=== PATIENT | male | born 1980 | race African-American/Black ===

== ENCOUNTER 2016-10-14 17:32 | Emergency (ER) | payer MEDICAID ==
[~2016-10-14] VITALS: Ht 182.9 cm; Wt 80.0 kg
[2016-10-14] MEDS ORDERED: SODIUM CHLORIDE 0.9% 1,000 ML IV ONE (17:47)
[2016-10-14] MEDS ORDERED: LORAZEPAM 2MG/ML CPJ IV STA (17:47)
[2016-10-14] MEDS ORDERED: ZIPRASIDONE MESYLATE 20MG/VIAL IM STA (17:47)
[2016-10-14 18:31] LABS: BASOPHILS % 1.3 % (0.0-2.0); EOSINOPHILS % 0.7 % (0.0-5.0); HEMATOCRIT. 36.2 % (42.0-52.0); HEMOGLOBIN. 12.8 g/dL (14.0-18.0); LYMPHOCYTES % 41.2 % (20.0-50.0); MEAN CORPUSCULAR HEMOGLOBIN 31.7 pg (28.0-32.0); MEAN CORPUSCULAR HGB CONC 35.3 g/dL (31.0-37.0); MEAN CORPUSCULAR VOLUME 89.6 fL (80.0-94.0); MEAN PLATELET VOLUME 7.7 fl (7.4-10.4); MONOCYTES % 6.5 % (2.0-8.0); NEUTROPHILS % 50.3 % (40.0-76.0); PLATELET 305 x1000/uL (130-400); RED BLOOD CELL COUNT 4.04 mill/uL (4.7-6.1); RED CELL DISTRIBUTION WIDTH 13.7 % (11.6-14.6); WHITE BLOOD COUNT 7.2 x1000/uL (4.5-11.0)
[2016-10-14 18:40] LABS: AMMONIA 22 uMol/L (<32); INDEX HEMOLYSI 1 (1-3)
[2016-10-14 18:46] LABS: ACETAMINOPHEN < 2 ug/mL (10-30); ALANINE AMINOTRANSFERASE 34 IU/L (13-61); ALBUMIN 4.1 g/dL (3.4-5.0); ANION GAP 16; CALCIUM 8.1 mg/dL (8.5-10.1); CARBON DIOXIDE 22 mEq/L (21-32); CHLORIDE 110 mEq/L (98-107); CREATINE KINASE 439 IU/L (39-308); INDEX HEMOLYSI 1 (1-3); INDEX ICTERIC 1 (1-4); INDEX LIPEMIC 1 (1-3); UREA NITROGEN BLOOD 6 mg/dL (7-21); eGFR > 60 mL/min (>60)
[2016-10-14 18:48] LABS: ETHANOL BLOOD 346 mg/dL
[2016-10-14 18:50] LABS: THYROID STIMULATING HORMONE 0.34 uIU/mL (0.36-3.74)
[2016-10-14 19:21] LABS: CLARITY URINE CLEAR (CLEAR); COLOR URINE YELLOW (YELLOW); GLUCOSE URINE NEGATIVE (NEGATIVE); KETONES URINE NEGATIVE (NEGATIVE); LEUKOCYTE ESTERASE URINE NEGATIVE (NEGATIVE); NITRITE URINE NEGATIVE (NEGATIVE); OCCULT BLOOD URINE NEGATIVE (NEGATIVE); PROTEIN URINE NEGATIVE (NEGATIVE); SPECIFIC GRAVITY URINE 1.006 (1.005-1.030); UROBILINOGEN URINE 0.2 E.U./dL (0.2-1.0)
[2016-10-14 19:49] LABS: *AMPHETAMINES SCREEN URINE NEGATIVE (NEGATIVE); *BARBITURATES SCREEN URINE NEGATIVE (NEGATIVE); *BENZODIAZEPINES SCREEN URINE NEGATIVE (NEGATIVE); *COCAINE SCREEN URINE NEGATIVE (NEGATIVE); CANNABINOID URINE SCREEN NEGATIVE (NEGATIVE); ECSTASY MDMA SCREEN URINE NEGATIVE (NEGATIVE); METHADONE URINE SCREEN NEGATIVE (NEGATIVE); OPIATES URINE SCREEN NEGATIVE (NEGATIVE); PHENCYCLIDINE URINE SCREEN NEGATIVE (NEGATIVE)
[2016-10-14 22:45] VITALS: BP 153/71
[2016-10-14] MEDS ORDERED: LEVETIRACETAM 500MG/5ML CUP PO ONE (23:45)
== END 2016-10-15 00:15 | disposition home or self-care (01) ==
LOC: ER 17:33
DX: F10.229 Alcohol dependence with intoxication, unspecified (principal); Y90.8 Blood alcohol level of 240 mg/100 ml or more; F91.8 Other conduct disorders; E86.0 Dehydration; E83.51 Hypocalcemia; E03.9 Hypothyroidism, unspecified; G40.909 Epilepsy, unspecified, not intractable, without status epilepticus; E87.8 Other disorders of electrolyte and fluid balance, not elsewhere classified; D63.8 Anemia in other chronic diseases classified elsewhere; R03.0 Elevated blood-pressure reading, without diagnosis of hypertension; Z78.1 Physical restraint status; Z91.19 Patient's noncompliance with other medical treatment and regimen
CPT/HCPCS: 36415; 80053; 80305; 80329; 81003; 82140; 82550; 84443; 85025; 93005; 96361; 96372; 96374; 99285; G0482; J2060; J3486; J7030; Z7610; 80307

== ENCOUNTER 2016-10-28 20:12 | Emergency (ER) | payer MEDICAID ==
[~2016-10-28] VITALS: Ht 172.7 cm; Wt 100.0 kg
[2016-10-28] MEDS ORDERED: LEVETIRACETAM 500MG/5ML CUP PO ONE (23:15)
[2016-10-29 00:48] VITALS: BP 151/93
== END 2016-10-29 00:49 | disposition home or self-care (01) ==
LOC: ER 10-29
DX: Z76.0 Encounter for issue of repeat prescription (principal); G40.909 Epilepsy, unspecified, not intractable, without status epilepticus; R47.81 Slurred speech; R03.0 Elevated blood-pressure reading, without diagnosis of hypertension; Z98.890 Other specified postprocedural states; Z87.820 Personal history of traumatic brain injury; Z88.8 Allergy status to other drugs, medicaments and biological substances; F10.10 Alcohol abuse, uncomplicated
CPT/HCPCS: 99283

== ENCOUNTER 2016-11-04 14:07 | Emergency (ER) | payer MEDICAID ==
[~2016-11-04] VITALS: Ht 182.9 cm; Wt 90.0 kg
[2016-11-04] MEDS ORDERED: SODIUM CHLORIDE 0.9% 1,000 ML IV ONE (14:25)
[2016-11-04] MEDS ORDERED: OLANZAPINE 10 MG/VIAL IM ONE ×2 (14:30→19:45)
[2016-11-04 15:47] LABS: BASOPHILS % 0.2 % (0.0-2.0); EOSINOPHILS % 2.3 % (0.0-5.0); HEMATOCRIT. 36.8 % (42.0-52.0); HEMOGLOBIN. 12.7 g/dL (14.0-18.0); LYMPHOCYTES % 44.3 % (20.0-50.0); MEAN CORPUSCULAR HEMOGLOBIN 30.4 pg (28.0-32.0); MEAN CORPUSCULAR HGB CONC 34.5 g/dL (31.0-37.0); MEAN PLATELET VOLUME 7.6 fl (7.4-10.4); MONOCYTES % 4.2 % (2.0-8.0); PLATELET 228 x1000/uL (130-400); RED BLOOD CELL COUNT 4.17 mill/uL (4.7-6.1); RED CELL DISTRIBUTION WIDTH 13.3 % (11.6-14.6)
[2016-11-04 15:51] LABS: CHLORIDE 111 mEq/L (98-107); INDEX HEMOLYSI 1 (1-3); INDEX ICTERIC 1 (1-4); INDEX LIPEMIC 1 (1-3)
[2016-11-04 15:58] LABS: ALANINE AMINOTRANSFERASE 30 IU/L (13-61); ALBUMIN 3.7 g/dL (3.4-5.0); AMMONIA 36 uMol/L (<32); ANION GAP 12; CALCIUM 8.3 mg/dL (8.5-10.1); CARBON DIOXIDE 26 mEq/L (21-32); UREA NITROGEN BLOOD 6 mg/dL (7-21)
[2016-11-04 16:01] LABS: eGFR > 60 mL/min (>60)
[2016-11-04 16:04] LABS: ACETAMINOPHEN < 2 ug/mL (10-30)
[2016-11-04 16:06] LABS: CARBAMAZEPINE < 0.5 ug/mL (4-12); ETHANOL BLOOD 358 mg/dL; PHENYTOIN 0.8 ug/mL (10-20); THYROID STIMULATING HORMONE 0.08 uIU/mL (0.36-3.74)
[2016-11-04 16:11] LABS: PHENOBARBITAL < 2.1 ug/mL (15.0-40.0); VALPROIC ACID 3.4 ug/mL (50-100)
[2016-11-04] MEDS ORDERED: PHENYTOIN SODIUM 1,000 MG in SODIUM CHLORIDE 0.9% 100 ML IV ONE (16:45)
[2016-11-04] MEDS ORDERED: PHENYTOIN SODIUM 1,000 MG in SODIUM CHLORIDE 0.9% 100 ML IV SCH (17:01)
[2016-11-04 17:20] LABS: *AMPHETAMINES SCREEN URINE NEGATIVE (NEGATIVE); *BARBITURATES SCREEN URINE NEGATIVE (NEGATIVE); *BENZODIAZEPINES SCREEN URINE NEGATIVE (NEGATIVE); *COCAINE SCREEN URINE NEGATIVE (NEGATIVE); CANNABINOID URINE SCREEN NEGATIVE (NEGATIVE); ECSTASY MDMA SCREEN URINE NEGATIVE (NEGATIVE); METHADONE URINE SCREEN NEGATIVE (NEGATIVE); OPIATES URINE SCREEN NEGATIVE (NEGATIVE); PHENCYCLIDINE URINE SCREEN NEGATIVE (NEGATIVE)
[2016-11-04] MEDS ORDERED: LORAZEPAM 2MG/ML CPJ IM ONE (20:45)
[2016-11-05 06:39] VITALS: BP 108/72
== END 2016-11-05 06:42 | disposition home or self-care (01) ==
LOC: ER 14:09
DX: F10.120 Alcohol abuse with intoxication, uncomplicated (principal); Z88.6 Allergy status to analgesic agent
CPT/HCPCS: 36415; 71010; 73130; 80053; 80156; 80165; 80184; 80185; 80305; 80307; 80329; 82140; 84443; 85025; 93005; 96361; 96365; 96372; 99285; G0482; J1165; J2060; J3490; J7030; J7050

== ENCOUNTER 2018-01-02 01:28 | Emergency (ER) | payer SELFPAY ==
[~2018-01-02 01:28] MED LIST: CEPH-569 PO; KEPP500 PO
== END 2018-01-02 01:34 | disposition left against medical advice (07) ==
LOC: ER 01:32
DX: R56.9 Unspecified convulsions (principal); Z53.21 Procedure and treatment not carried out due to patient leaving prior to being seen by health care provider

== ENCOUNTER 2018-01-03 17:09 | Emergency (ER) | payer SELFPAY | END 2018-01-03 18:33 | disposition left against medical advice (07) | LOC: ER 18:28 | DX: Z53.21 Procedure and treatment not carried out due to patient leaving prior to being seen by health care provider (principal) ==

== ENCOUNTER 2018-01-06 16:02 | Emergency (ER) | payer MEDICAID ==
[~2018-01-06] VITALS: Ht 162.6 cm; Wt 74.0 kg
[2018-01-06 16:07] VITALS: BP 114/73
== END 2018-01-06 16:48 | disposition home or self-care (01) ==
LOC: ER 16:14
DX: Z76.0 Encounter for issue of repeat prescription (principal); R56.9 Unspecified convulsions; F17.200 Nicotine dependence, unspecified, uncomplicated
CPT/HCPCS: 99283

== ENCOUNTER 2018-02-16 14:47 | Emergency (ER) | payer MEDICAID | END 2018-02-16 16:21 | disposition left against medical advice (07) | LOC: ER 16:17 | DX: Z53.21 Procedure and treatment not carried out due to patient leaving prior to being seen by health care provider (principal) ==

== ENCOUNTER 2018-02-19 14:43 | Emergency (ER) | payer MEDICAID ==
[~2018-02-19] VITALS: Ht 180.3 cm; Wt 73.0 kg
[2018-02-19 15:54] VITALS: BP 141/80
== END 2018-02-19 17:47 | disposition left against medical advice (07) ==
LOC: ER 15:49
DX: G40.802 Other epilepsy, not intractable, without status epilepticus (principal)
CPT/HCPCS: 99281

== ENCOUNTER 2018-02-20 09:46 | Emergency (ER) | payer MEDICAID ==
[~2018-02-20] VITALS: Ht 175.3 cm; Wt 75.0 kg
[2018-02-20] MEDS ORDERED: LEVETIRACETAM 500MG PREMIX 100 ML IV ONE (10:30)
[2018-02-20 11:03] LABS: EOSINOPHILS % 1.4 % (0.0-5.0); HEMATOCRIT. 37.2 % (42.0-52.0); HEMOGLOBIN. 13.1 g/dL (14.0-18.0); LYMPHOCYTES % 45.5 % (20.0-50.0); MEAN CORPUSCULAR HEMOGLOBIN 29.5 pg (28.0-32.0); MEAN CORPUSCULAR VOLUME 84.3 fL (80.0-94.0); MONOCYTES % 6.9 % (2.0-8.0); NEUTROPHILS % 45.2 % (40.0-76.0); PLATELET 256 x1000/uL (130-400); RED BLOOD CELL COUNT 4.42 mill/uL (4.7-6.1); RED CELL DISTRIBUTION WIDTH 14.8 % (11.6-14.6)
[2018-02-20 11:09] LABS: CHLORIDE 111 mEq/L (98-107)
[2018-02-20 11:12] LABS: INR 0.9; PARTIAL THROMBOPLASTIN TIME 24.6 sec (23.4-31.0); PROTHROMBIN TIME 9.9 sec (9.4-11.6)
[2018-02-20 11:24] LABS: ETHANOL BLOOD 407 mg/dL
[2018-02-20 11:51] LABS: *COCAINE SCREEN URINE NEGATIVE (NEGATIVE)
[2018-02-20 11:52] LABS: *AMPHETAMINES SCREEN URINE NEGATIVE (NEGATIVE); *BARBITURATES SCREEN URINE NEGATIVE (NEGATIVE); *BENZODIAZEPINES SCREEN URINE NEGATIVE (NEGATIVE); CANNABINOID URINE SCREEN NEGATIVE (NEGATIVE); METHADONE URINE SCREEN NEGATIVE (NEGATIVE); OPIATES URINE SCREEN NEGATIVE (NEGATIVE); PHENCYCLIDINE URINE SCREEN NEGATIVE (NEGATIVE)
[2018-02-20 14:58] VITALS: BP 124/77
== END 2018-02-20 14:59 | disposition home or self-care (01) ==
LOC: ER 09:46
DX: F10.129 Alcohol abuse with intoxication, unspecified (principal); Y90.8 Blood alcohol level of 240 mg/100 ml or more; R45.1 Restlessness and agitation; F91.8 Other conduct disorders; R41.0 Disorientation, unspecified; R03.0 Elevated blood-pressure reading, without diagnosis of hypertension; G40.909 Epilepsy, unspecified, not intractable, without status epilepticus; Z88.8 Allergy status to other drugs, medicaments and biological substances; Z79.899 Other long term (current) drug therapy
CPT/HCPCS: 36415; 80053; 80305; 85025; 85610; 85730; 96365; 99284; G0482; J1953; Z7610

== ENCOUNTER 2018-02-27 14:46 | Emergency (ER) | payer MEDICAID ==
[~2018-02-27] VITALS: Ht 170.2 cm; Wt 70.0 kg
[2018-02-27 14:47] VITALS: BP 104/71
== END 2018-02-27 15:19 | disposition left against medical advice (07) ==
LOC: ER 15:13
DX: Z04.8 Encounter for examination and observation for other specified reasons (principal); Z53.21 Procedure and treatment not carried out due to patient leaving prior to being seen by health care provider

== ENCOUNTER 2018-03-19 14:02 | Emergency (ER) | payer MEDICAID ==
[~2018-03-19] VITALS: Ht 180.3 cm; Wt 74.0 kg
[2018-03-19 14:27] VITALS: BP 132/88
== END 2018-03-19 18:41 | disposition left against medical advice (07) ==
LOC: ER 14:48
DX: R56.9 Unspecified convulsions (principal); F17.200 Nicotine dependence, unspecified, uncomplicated; Z76.0 Encounter for issue of repeat prescription
CPT/HCPCS: 99281

== ENCOUNTER 2018-04-16 14:49 | Emergency (ER) | payer MEDICAID ==
[~2018-04-16] VITALS: Ht 175.3 cm; Wt 69.0 kg
[2018-04-16 15:00] VITALS: BP 152/94
== END 2018-04-16 18:14 | disposition home or self-care (01) ==
LOC: ER 14:49
DX: R56.9 Unspecified convulsions (principal); F17.200 Nicotine dependence, unspecified, uncomplicated; Z76.0 Encounter for issue of repeat prescription; Z88.6 Allergy status to analgesic agent; Z98.890 Other specified postprocedural states
CPT/HCPCS: 99283

== ENCOUNTER 2018-04-27 16:51 | Emergency (ER) | payer MEDICAID ==
[~2018-04-27] VITALS: Ht 175.3 cm; Wt 80.0 kg
[2018-04-27 16:58] VITALS: BP 118/78
== END 2018-04-27 18:16 | disposition left against medical advice (07) ==
LOC: ER 17:35
DX: Z53.21 Procedure and treatment not carried out due to patient leaving prior to being seen by health care provider (principal)

== ENCOUNTER 2018-05-03 08:35 | Emergency (ER) | payer MEDICAID ==
[~2018-05-03] VITALS: Ht 170.2 cm; Wt 74.0 kg
[2018-05-03] MEDS ORDERED: LEVETIRACETAM 500MG/5ML CUP PO ONE (10:00)
[2018-05-03 10:29] VITALS: BP 114/76
== END 2018-05-03 10:31 | disposition home or self-care (01) ==
LOC: ER 08:35
DX: G40.909 Epilepsy, unspecified, not intractable, without status epilepticus (principal); F17.200 Nicotine dependence, unspecified, uncomplicated; Z88.6 Allergy status to analgesic agent; Z98.890 Other specified postprocedural states
CPT/HCPCS: 99283

== ENCOUNTER 2018-05-09 08:42 | Emergency (ER) | payer MEDICAID ==
[~2018-05-09] VITALS: Ht 177.8 cm; Wt 80.0 kg
[2018-05-09] MEDS ORDERED: LEVETIRACETAM 1000MG/100ML 100 ML IV ONE (09:15)
[2018-05-09 09:50] LABS: BASOPHILS % 1.4 % (0.0-2.0); EOSINOPHILS % 3.4 % (0.0-5.0); HEMATOCRIT. 39.3 % (42.0-52.0); HEMOGLOBIN. 13.5 g/dL (14.0-18.0); LYMPHOCYTES % 26.6 % (20.0-50.0); MEAN CORPUSCULAR HEMOGLOBIN 29.5 pg (28.0-32.0); MEAN CORPUSCULAR VOLUME 85.6 fL (80.0-94.0); MEAN PLATELET VOLUME 8.5 fl (7.4-10.4); MONOCYTES % 9.4 % (2.0-8.0); NEUTROPHILS % 59.2 % (40.0-76.0); PLATELET 250 x1000/uL (130-400); RED BLOOD CELL COUNT 4.59 mill/uL (4.7-6.1); RED CELL DISTRIBUTION WIDTH 13.6 % (11.6-14.6)
[2018-05-09 09:57] LABS: CHLORIDE 99 mEq/L (98-107)
[2018-05-09 10:05] LABS: ETHANOL BLOOD < 10 mg/dL
[2018-05-09 10:23] VITALS: BP 121/82
== END 2018-05-09 10:25 | disposition home or self-care (01) ==
LOC: ER 08:52
DX: G40.909 Epilepsy, unspecified, not intractable, without status epilepticus (principal); F17.200 Nicotine dependence, unspecified, uncomplicated; R03.0 Elevated blood-pressure reading, without diagnosis of hypertension; Z91.14 Patient's other noncompliance with medication regimen; Z88.6 Allergy status to analgesic agent
CPT/HCPCS: 36415; 80053; 82962; 85025; 96365; 99284; G0482; J1953

== ENCOUNTER 2018-05-11 18:23 | Emergency (ER) | payer MEDICAID ==
[~2018-05-11] VITALS: Ht 180.3 cm; Wt 76.0 kg
[2018-05-11 18:26] VITALS: BP 128/86
== END 2018-05-11 18:43 | disposition left against medical advice (07) ==
LOC: ER 18:37
DX: Z53.21 Procedure and treatment not carried out due to patient leaving prior to being seen by health care provider (principal)

== ENCOUNTER 2018-05-13 08:20 | Emergency (ER) | payer MEDICAID | END 2018-05-13 10:29 | disposition left against medical advice (07) | LOC: ER 08:20 | DX: Z53.21 Procedure and treatment not carried out due to patient leaving prior to being seen by health care provider (principal) ==

== ENCOUNTER 2018-05-14 20:22 | Emergency (ER) | payer MEDICAID ==
[~2018-05-14] VITALS: Ht 180.3 cm; Wt 74.0 kg
[2018-05-15] MEDS ORDERED: LEVETIRACETAM 500MG TABLET PO ONE (00:15)
[2018-05-15] MEDS ORDERED: ONDANSETRON HCL 4MG/2ML INJ IV STA (00:20)
[2018-05-15] MEDS ORDERED: SODIUM CHLORIDE 0.9% 1,000 ML IV ONE (00:20)
[2018-05-15] MEDS ORDERED: LEVETIRACETAM 500MG PREMIX 100 ML IV ONE (00:30)
[2018-05-15 04:24] VITALS: BP 122/62
== END 2018-05-15 04:29 | disposition home or self-care (01) ==
LOC: ER 20:22
DX: R53.1 Weakness (principal); G40.909 Epilepsy, unspecified, not intractable, without status epilepticus; Z76.0 Encounter for issue of repeat prescription; F10.10 Alcohol abuse, uncomplicated; Y90.2 Blood alcohol level of 40-59 mg/100 ml
CPT/HCPCS: 36415; 96365; 96375; 99284; G0482; J1953; J2405; J7030; Z7610

== ENCOUNTER 2018-06-14 05:13 | Emergency (ER) | payer MEDICAID ==
[~2018-06-14] VITALS: Ht 180.3 cm; Wt 74.0 kg
[2018-06-14 07:52] LABS: CHLORIDE 105 mEq/L (98-107)
[2018-06-14 07:54] LABS: PHOSPHORUS 3.7 mg/dL (2.5-4.9)
[2018-06-14] MEDS ORDERED: LEVETIRACETAM 500MG TABLET PO SCH (09:00)
[2018-06-14 12:30] VITALS: BP 118/76
[2018-06-14] MEDS ORDERED: LEVETIRACETAM 500MG TABLET PO ONE (12:30)
== END 2018-06-14 12:48 | disposition home or self-care (01) ==
LOC: ER 05:13
DX: G40.909 Epilepsy, unspecified, not intractable, without status epilepticus (principal); F17.200 Nicotine dependence, unspecified, uncomplicated; F12.10 Cannabis abuse, uncomplicated; Z98.890 Other specified postprocedural states; Z88.6 Allergy status to analgesic agent; Z88.5 Allergy status to narcotic agent
CPT/HCPCS: 36415; 80048; 82542; 83735; 84100; 99284

== ENCOUNTER 2018-06-17 04:14 | Emergency (ER) | payer MEDICAID ==
[~2018-06-17] VITALS: Ht 175.3 cm; Wt 77.2 kg
[2018-06-17 04:20] VITALS: BP 126/87
== END 2018-06-17 06:50 | disposition left against medical advice (07) ==
LOC: ER 04:14
DX: Z53.21 Procedure and treatment not carried out due to patient leaving prior to being seen by health care provider (principal)

== ENCOUNTER 2018-08-10 18:58 | Emergency (ER) | payer MEDICAID ==
[~2018-08-10] VITALS: Ht 180.3 cm; Wt 71.3 kg
[2018-08-10 19:42] VITALS: BP 156/99
[2018-08-10] MEDS ORDERED: LEVETIRACETAM 500MG/5ML CUP PO ONE (22:30)
== END 2018-08-10 23:50 | disposition home or self-care (01) ==
LOC: ER 18:58
DX: Z76.0 Encounter for issue of repeat prescription (principal); G40.909 Epilepsy, unspecified, not intractable, without status epilepticus; F12.90 Cannabis use, unspecified, uncomplicated; Z87.891 Personal history of nicotine dependence
CPT/HCPCS: 99283

== ENCOUNTER 2020-03-31 12:02 | Emergency (ER) | payer MEDICAID ==
[~2020-03-31] VITALS: Ht 180.3 cm; Wt 79.0 kg
[2020-03-31 12:03] VITALS: BP 134/86
== END 2020-03-31 12:41 | disposition home or self-care (01) ==
LOC: ER 12:02
DX: Z76.0 Encounter for issue of repeat prescription (principal); G40.909 Epilepsy, unspecified, not intractable, without status epilepticus
CPT/HCPCS: 99283

== ENCOUNTER 2020-04-17 05:14 | Emergency (ER) | payer MEDICAID ==
[~2020-04-17] VITALS: Ht 172.7 cm; Wt 70.0 kg
[2020-04-17 05:21] VITALS: BP 124/84
[2020-04-18] MEDS ORDERED: DIVA500T3 PO (09:38)
== END 2020-04-17 07:15 | disposition home or self-care (01) ==
LOC: ER 05:14
DX: Z76.89 Persons encountering health services in other specified circumstances (principal)
CPT/HCPCS: 99281

== ENCOUNTER 2020-04-18 09:33 | Emergency (ER) | payer MEDICAID ==
[~2020-04-18] VITALS: Ht 172.7 cm; Wt 70.0 kg
[2020-04-18 09:35] VITALS: BP 134/86
[2020-04-18] MEDS ORDERED: DIVA500T3 PO (09:38)
== END 2020-04-18 10:40 | disposition home or self-care (01) ==
LOC: ER 09:42
DX: G40.909 Epilepsy, unspecified, not intractable, without status epilepticus (principal); F12.10 Cannabis abuse, uncomplicated; Z88.6 Allergy status to analgesic agent; Z88.8 Allergy status to other drugs, medicaments and biological substances; Z79.899 Other long term (current) drug therapy
CPT/HCPCS: 99283

== ENCOUNTER 2020-04-30 08:57 | Emergency (ER) | payer MEDICAID ==
[~2020-04-30] VITALS: Ht 180.3 cm; Wt 73.0 kg
[~2020-04-30 08:57] MED LIST changes: +DIVA500T3 PO
[2020-04-30 08:59] VITALS: BP 127/76
== END 2020-04-30 09:54 | disposition home or self-care (01) ==
LOC: ER 08:57
DX: R56.9 Unspecified convulsions (principal); F12.10 Cannabis abuse, uncomplicated; Z76.0 Encounter for issue of repeat prescription
CPT/HCPCS: 99281; 99283

== ENCOUNTER 2020-05-13 12:12 | Emergency (ER) | payer MEDICAID ==
[~2020-05-13] VITALS: Ht 180.3 cm; Wt 77.0 kg
[2020-05-13] MEDS ORDERED: DIVALPROEX SODIUM 500MG DR TABLET PO ONE (14:15)
[2020-05-13] MEDS: LEVETIRACETAM 500MG TABLET PO ONE ×2 (14:30→14:38)
[2020-05-13 15:03] VITALS: BP 132/76
== END 2020-05-13 15:03 | disposition home or self-care (01) ==
LOC: ER 12:39
DX: Z76.0 Encounter for issue of repeat prescription (principal); G40.909 Epilepsy, unspecified, not intractable, without status epilepticus
CPT/HCPCS: 99283

== ENCOUNTER 2020-05-22 16:16 | Emergency (ER) | payer MEDICAID ==
[~2020-05-22] VITALS: Ht 177.8 cm; Wt 80.0 kg
[2020-05-22 16:41] VITALS: BP 131/80
== END 2020-05-22 17:30 | disposition home or self-care (01) ==
LOC: ER 17:16
DX: Z76.0 Encounter for issue of repeat prescription (principal); G40.909 Epilepsy, unspecified, not intractable, without status epilepticus
CPT/HCPCS: 99283

== ENCOUNTER 2020-05-25 06:00 | Emergency (ER) | payer MEDICAID ==
[~2020-05-25] VITALS: Ht 170.2 cm; Wt 77.0 kg
[2020-05-25 06:56] VITALS: BP 126/87
[2020-05-25] MEDS ORDERED: LEVETIRACETAM 500MG TABLET PO ONE (08:45)
[2020-05-25] MEDS ORDERED: DIVALPROEX SODIUM 500MG ER TABLET PO NR (09:00)
== END 2020-05-25 09:24 | disposition home or self-care (01) ==
LOC: ER 06:00
DX: G40.909 Epilepsy, unspecified, not intractable, without status epilepticus (principal); F12.10 Cannabis abuse, uncomplicated; Z76.0 Encounter for issue of repeat prescription
CPT/HCPCS: 99283

== ENCOUNTER 2020-06-29 05:07 | Emergency (ER) | payer MEDICAID | END 2020-06-29 06:30 | disposition left against medical advice (07) | LOC: ER 05:07 | DX: Z53.21 Procedure and treatment not carried out due to patient leaving prior to being seen by health care provider (principal) ==

== ENCOUNTER 2021-01-23 15:11 | Emergency (ER) | payer MEDICAID, OTHER ==
[~2021-01-23] VITALS: Ht 177.8 cm; Wt 80.0 kg
[2021-01-23 15:22] VITALS: BP 116/74
[2021-01-23] MEDS ORDERED: DIVA500T3 PO (15:35)
== END 2021-01-23 16:06 | disposition home or self-care (01) ==
LOC: ER 15:58
DX: R56.9 Unspecified convulsions (principal); F12.10 Cannabis abuse, uncomplicated
CPT/HCPCS: 99283

== ENCOUNTER 2021-02-10 12:06 | Emergency (ER) | payer OTHER ==
[~2021-02-10] VITALS: Ht 177.8 cm; Wt 77.0 kg
[2021-02-10 12:14] VITALS: BP 12/76
[2021-02-10] MEDS ORDERED: DIVA-18 MT (14:07)
[2021-02-10] MEDS ORDERED: DIVALPROEX SODIUM 250MG ER TABLET PO ONE (14:15)
== END 2021-02-10 14:24 | disposition home or self-care (01) ==
LOC: ER 12:06
DX: Z76.0 Encounter for issue of repeat prescription (principal); G40.909 Epilepsy, unspecified, not intractable, without status epilepticus; F41.9 Anxiety disorder, unspecified; F12.10 Cannabis abuse, uncomplicated; Z87.820 Personal history of traumatic brain injury
CPT/HCPCS: 99283; Z7610

== ENCOUNTER 2021-03-10 08:51 | Inpatient (IN) | payer OTHER ==
[~2021-03-10] VITALS: Ht 172.7 cm; Wt 67.1 kg
[~2021-03-10 08:51] MED LIST changes: +DIVA-18 MT
[2021-03-10] MEDS ORDERED: HALOPERIDOL LACTATE 5MG/ML VIAL IM ONE (09:00)
[2021-03-10] MEDS ORDERED: LORAZEPAM 2MG/ML CPJ IV ONE (09:30)
[2021-03-10] MEDS ORDERED: IOHEXOL-350 100 ML BOTTLE ONE (09:56)
[2021-03-10] MEDS ORDERED: LEVETIRACETAM 1000MG PREMIX 100 ML IV ONE (10:45)
[2021-03-10 10:46] LABS: BASOPHILS % 0.7 % (0.0-2.0); HEMATOCRIT. 41.1 % (42.0-52.0); HEMOGLOBIN. 14.2 g/dL (14.0-18.0); LYMPHOCYTES % 7.1 % (20.0-50.0); MEAN CORPUSCULAR HEMOGLOBIN 29.8 pg (28.0-32.0); MEAN CORPUSCULAR VOLUME 86.3 fL (80.0-94.0); MEAN PLATELET VOLUME 10.2 fl (7.4-10.4); MONOCYTES % 10.6 % (2.0-8.0); NEUTROPHILS % 81.6 % (40.0-76.0); PLATELET 142 x1000/uL (130-400); RED BLOOD CELL COUNT 4.75 mill/uL (4.7-6.1); RED CELL DISTRIBUTION WIDTH 15.1 % (11.6-14.6)
[2021-03-10 10:52] LABS: CHLORIDE 107 mEq/L (98-107)
[2021-03-10 10:59] LABS: ETHANOL BLOOD < 10 mg/dL
[2021-03-10 11:03] LABS: LDL CHOLESTEROL 52 mg/dL (5-100)
[2021-03-10 11:58] LABS: CLARITY URINE CLEAR (CLEAR); COLOR URINE YELLOW (YELLOW); KETONES URINE 1+ (NEGATIVE); LEUKOCYTE ESTERASE URINE NEGATIVE (NEGATIVE); NITRITE URINE NEGATIVE (NEGATIVE); OCCULT BLOOD URINE 1+ (NEGATIVE); PROTEIN URINE TRACE (NEGATIVE); SPECIFIC GRAVITY URINE 1.036 (1.005-1.030); UROBILINOGEN URINE 0.2 E.U./dL (0.2-1.0)
[2021-03-10 12:08] LABS: INR 1.2; PROTHROMBIN TIME 12.4 sec (9.6-11.0)
[2021-03-10 12:42] LABS: *BARBITURATES SCREEN URINE NEGATIVE (NEGATIVE)
[2021-03-10 12:43] LABS: *BENZODIAZEPINES SCREEN URINE NEGATIVE (NEGATIVE); *COCAINE SCREEN URINE NEGATIVE (NEGATIVE); CANNABINOID URINE SCREEN PRESUMTIVE POSITIVE (NEGATIVE); METHADONE URINE SCREEN NEGATIVE (NEGATIVE); OPIATES URINE SCREEN NEGATIVE (NEGATIVE); PHENCYCLIDINE URINE SCREEN NEGATIVE (NEGATIVE)
[2021-03-10 12:44] LABS: *AMPHETAMINES SCREEN URINE NEGATIVE (NEGATIVE)
[2021-03-10] MEDS ORDERED: ACETAMINOPHEN 325MG TABLET PO PRN (12:45)
[2021-03-10] MEDS ORDERED: ONDANSETRON HCL 4MG/2ML INJ IV PRN (12:45)
[2021-03-10] MEDS: ENOXAPARIN 40MG/0.4ML SYR SUBCUT SCH (14:15)
[2021-03-10 20:15] VITALS: BP 138/84
[2021-03-10 20:30] VITALS: BP 138/84
[2021-03-10] MEDS ORDERED: PROP10TA10 GT (20:57)
[2021-03-10] MEDS ORDERED: NALT50TA5 MT (20:58)
[2021-03-10] MEDS ORDERED: LORAZEPAM 2MG/ML CPJ IV PRN (21:15)
[2021-03-10] MEDS: LEVETIRACETAM 500MG TABLET PO SCH (21:45)
[2021-03-11] VITALS: BP 120/71
[2021-03-11 04:00] VITALS: BP 133/81
[2021-03-11 08:00] VITALS: BP 139/70
[2021-03-11] MEDS: ASPIRIN 81MG TABLET PO SCH (09:00)
[2021-03-11] MEDS: LEVETIRACETAM 500MG TABLET PO SCH (09:00)
[2021-03-11] MEDS: DEXT 5%/0.45% NACL 1000ML 1,000 ML IV SCH ×2 (11:21→22:32)
[2021-03-11 12:00] VITALS: BP 123/75
[2021-03-11] MEDS: LEVETIRACETAM 500MG PREMIX 100 ML IV SCH ×2 (13:19→22:31)
[2021-03-11] MEDS: ENOXAPARIN 40MG/0.4ML SYR SUBCUT SCH (13:19)
[2021-03-11] MEDS: LORAZEPAM 2MG/ML CPJ IV PRN (15:23)
[2021-03-11 16:00] VITALS: BP 120/82
[2021-03-11 20:09] LABS: BASOPHILS % 0.6 % (0.0-2.0); EOSINOPHILS % 0.3 % (0.0-5.0); HEMATOCRIT. 44.6 % (42.0-52.0); HEMOGLOBIN. 15.4 g/dL (14.0-18.0); LYMPHOCYTES % 12.4 % (20.0-50.0); MONOCYTES % 9.1 % (2.0-8.0); NEUTROPHILS % 77.6 % (40.0-76.0); RED BLOOD CELL COUNT 5.13 mill/uL (4.7-6.1); RED CELL DISTRIBUTION WIDTH 15.3 % (11.6-14.6)
[2021-03-11 20:32] VITALS: BP 112/82
[2021-03-11 20:36] LABS: CHLORIDE 109 mEq/L (98-107)
[2021-03-12 00:28] VITALS: BP 138/84
[2021-03-12 04:00] VITALS: BP 98/71
[2021-03-12] MEDS: LORAZEPAM 2MG/ML CPJ IV PRN (05:28)
[2021-03-12] MEDS: DEXT 5%/0.45% NACL 1000ML 1,000 ML IV SCH ×2 (06:56→17:30)
[2021-03-12] MEDS: LEVETIRACETAM 500MG PREMIX 100 ML IV SCH ×2 (08:54→21:17)
[2021-03-12] MEDS: ASPIRIN 81MG TABLET PO SCH (09:05)
[2021-03-12 12:00] VITALS: BP 134/87
[2021-03-12] MEDS: ENOXAPARIN 40MG/0.4ML SYR SUBCUT SCH (12:58)
[2021-03-12 17:34] VITALS: BP 140/60
[2021-03-12 20:25] VITALS: BP 124/85
[2021-03-12] MEDS ORDERED: LORAZEPAM 2MG/ML CPJ IV PRN (23:15)
[2021-03-13] VITALS: BP 119/86
[2021-03-13] MEDS: DEXT 5%/0.45% NACL 1000ML 1,000 ML IV SCH ×3 (03:51→23:15)
[2021-03-13 08:27] VITALS: BP 121/81
[2021-03-13] MEDS: LEVETIRACETAM 500MG TABLET PO SCH ×2 (09:04→16:40)
[2021-03-13] MEDS: ASPIRIN 81MG TABLET PO SCH (09:04)
[2021-03-13 12:04] VITALS: BP 117/76
[2021-03-13] MEDS: ENOXAPARIN 40MG/0.4ML SYR SUBCUT SCH (13:43)
[2021-03-13 16:17] VITALS: BP 119/70
[2021-03-13 20:00] VITALS: BP 135/74
[2021-03-14] VITALS: BP 136/80
[2021-03-14 04:00] VITALS: BP 134/80
[2021-03-14 08:00] VITALS: BP 110/65
[2021-03-14] MEDS: ASPIRIN 81MG TABLET PO SCH (10:38)
[2021-03-14] MEDS: LEVETIRACETAM 500MG TABLET PO SCH ×2 (10:38→17:29)
[2021-03-14 12:00] VITALS: BP 102/64
[2021-03-14 16:00] VITALS: BP 154/72
[2021-03-14] MEDS: ENOXAPARIN 40MG/0.4ML SYR SUBCUT SCH (17:30)
[2021-03-14] MEDS: DEXT 5%/0.45% NACL 1000ML 1,000 ML IV SCH ×2 (17:31→19:15)
[2021-03-14 20:00] VITALS: BP 116/71
[2021-03-15] VITALS: BP 116/67
[2021-03-15 04:00] VITALS: BP 109/67
[2021-03-15] MEDS: DEXT 5%/0.45% NACL 1000ML 1,000 ML IV SCH (05:58)
[2021-03-15] MEDS ORDERED: ASPI-1160 PO (07:54)
[2021-03-15] MEDS ORDERED: KEPP500 PO (07:54)
[2021-03-15 08:00] VITALS: BP 117/71
[2021-03-15] MEDS: ASPIRIN 81MG TABLET PO SCH (09:00)
[2021-03-15] MEDS: LEVETIRACETAM 500MG TABLET PO SCH ×2 (09:00→17:31)
[2021-03-15 12:00] VITALS: BP 109/68
[2021-03-15] MEDS: ENOXAPARIN 40MG/0.4ML SYR SUBCUT SCH (13:04)
[2021-03-15 16:00] VITALS: BP 108/65
[2021-03-15 17:14] VITALS: BP 108/65
== END 2021-03-15 18:42 | disposition home or self-care (01) | DRG 52 ==
LOC: ER 08:51 → 6WST 11:19 → ENRESERV 19:40
PROVIDERS: ADMIT Internal Medicine; ATTEND Internal Medicine
DX: G93.41 Metabolic encephalopathy (principal); E87.5 Hyperkalemia; G40.901 Epilepsy, unspecified, not intractable, with status epilepticus; F12.90 Cannabis use, unspecified, uncomplicated; R74.01 Elevation of levels of liver transaminase levels; F41.9 Anxiety disorder, unspecified; Z86.73 Personal history of transient ischemic attack (TIA), and cerebral infarction without residual deficits; Z82.49 Family history of ischemic heart disease and other diseases of the circulatory system; Z99.3 Dependence on wheelchair; Z79.899 Other long term (current) drug therapy; Z79.82 Long term (current) use of aspirin
CPT/HCPCS: 36415; 70496; 70498; 70551; 71045; 80048; 80053; 80305; 80320; 81003; 82140; 82962; 83721; 84484; 85025; 93005; 97116; 97162; 99291; C1893; J1630; J1650; J1953; J2060; Q9967; G0480

== ENCOUNTER 2021-04-01 10:34 | Emergency (ER) | payer OTHER ==
[~2021-04-01] VITALS: Ht 180.3 cm; Wt 95.0 kg
[~2021-04-01 10:34] MED LIST changes: +ASPI-1160 PO; -CEPH-569 PO; -DIVA-18 MT; +NALT50TA5 MT; +PROP10TA10 GT
[2021-04-01] MEDS ORDERED: DIVALPROEX SODIUM 250MG ER TABLET PO ONE (11:15)
[2021-04-01] MEDS ORDERED: LORAZEPAM 2MG/ML CPJ IV ONE (11:15)
[2021-04-01 11:30] VITALS: BP 115/78
[2021-04-01] MEDS ORDERED: DIVALPROEX SODIUM 250MG ER TABLET PO NR (11:30)
[2021-04-01 12:30] LABS: BASOPHILS % 0.8 % (0.0-2.0); EOSINOPHILS % 0.2 % (0.0-5.0); HEMATOCRIT. 36.9 % (42.0-52.0); HEMOGLOBIN. 13.3 g/dL (14.0-18.0); LYMPHOCYTES % 27.6 % (20.0-50.0); MEAN CORPUSCULAR HEMOGLOBIN 31.1 pg (28.0-32.0); MEAN CORPUSCULAR VOLUME 86.3 fL (80.0-94.0); MEAN PLATELET VOLUME 7.7 fl (7.4-10.4); NEUTROPHILS % 63.4 % (40.0-76.0); PLATELET 222 x1000/uL (130-400); RED BLOOD CELL COUNT 4.27 mill/uL (4.7-6.1); RED CELL DISTRIBUTION WIDTH 13.9 % (11.6-14.6)
[2021-04-01 12:38] LABS: CHLORIDE 110 mEq/L (98-107)
[2021-04-01 12:41] LABS: CLARITY URINE CLEAR (CLEAR); COLOR URINE YELLOW (YELLOW); KETONES URINE TRACE (NEGATIVE); LEUKOCYTE ESTERASE URINE NEGATIVE (NEGATIVE); NITRITE URINE NEGATIVE (NEGATIVE); OCCULT BLOOD URINE NEGATIVE (NEGATIVE); PH URINE 6.5 (4.5-8.0); PROTEIN URINE NEGATIVE (NEGATIVE); SPECIFIC GRAVITY URINE 1.022 (1.005-1.030)
[2021-04-01 12:43] LABS: ETHANOL BLOOD < 10 mg/dL
[2021-04-01 12:58] LABS: *BARBITURATES SCREEN URINE NEGATIVE (NEGATIVE); CANNABINOID URINE SCREEN PRESUMTIVE POSITIVE (NEGATIVE)
[2021-04-01 12:59] LABS: *BENZODIAZEPINES SCREEN URINE NEGATIVE (NEGATIVE); METHADONE URINE SCREEN NEGATIVE (NEGATIVE); OPIATES URINE SCREEN NEGATIVE (NEGATIVE); PHENCYCLIDINE URINE SCREEN NEGATIVE (NEGATIVE)
[2021-04-01 13:00] LABS: *AMPHETAMINES SCREEN URINE NEGATIVE (NEGATIVE)
[2021-04-01 13:02] LABS: *COCAINE SCREEN URINE NEGATIVE (NEGATIVE)
[2021-04-01] MEDS ORDERED: DIVA500T3 PO (13:24)
== END 2021-04-01 14:55 | disposition home or self-care (01) ==
LOC: ER 10:47
DX: F22 Delusional disorders (principal); Z76.0 Encounter for issue of repeat prescription; Z59.0 Homelessness; Z91.14 Patient's other noncompliance with medication regimen; Z98.890 Other specified postprocedural states; Z86.59 Personal history of other mental and behavioral disorders
CPT/HCPCS: 36415; 80053; 80165; 80305; 80320; 81003; 85025; 93005; 99284; J2060; Z7610; G0480

== ENCOUNTER 2021-09-03 20:52 | Emergency (ER) | payer MEDICAID, OTHER ==
[~2021-09-03] VITALS: Ht 177.8 cm; Wt 75.0 kg
[2021-09-03] MEDS ORDERED: VALPROATE SODIUM 1,000 MG in DEXT 5% WATER 100 ML IV ONE (22:45)
[2021-09-03] MEDS ORDERED: SODIUM CHLORIDE 0.9% 1,000 ML IV ONE (22:45)
[2021-09-03 23:27] LABS: BASOPHILS % 0.9 % (0.0-2.0); EOSINOPHILS % 3.7 % (0.0-5.0); HEMATOCRIT. 39.8 % (42.0-52.0); HEMOGLOBIN. 13.8 g/dL (14.0-18.0); LYMPHOCYTES % 46.2 % (20.0-50.0); MEAN CORPUSCULAR VOLUME 78.1 fL (80.0-94.0); MEAN PLATELET VOLUME 8.5 fl (7.4-10.4); MONOCYTES % 5.8 % (2.0-8.0); NEUTROPHILS % 43.4 % (40.0-76.0); PLATELET 202 x1000/uL (130-400); RED CELL DISTRIBUTION WIDTH 13.2 % (11.6-14.6)
[2021-09-03 23:34] LABS: CHLORIDE 105 mEq/L (98-107)
[2021-09-04] MEDS ORDERED: DIVA500T3 PO (00:10)
[2021-09-04 01:00] VITALS: BP 136/81
== END 2021-09-04 01:05 | disposition home or self-care (01) ==
LOC: ER 20:52
DX: G40.909 Epilepsy, unspecified, not intractable, without status epilepticus (principal); Z79.899 Other long term (current) drug therapy; R53.1 Weakness
CPT/HCPCS: 36415; 80053; 85025; 96365; 99284; J3490; J7030; J7060; Z7610

== ENCOUNTER 2021-11-16 08:54 | Emergency (ER) | payer MEDICAID ==
[~2021-11-16] VITALS: Ht 175.3 cm; Wt 80.0 kg
[2021-11-16] MEDS ORDERED: IOHEXOL-350 100 ML BOTTLE ONE (09:58)
[2021-11-16 10:11] LABS: BASOPHILS % 0.9 % (0.0-2.0); EOSINOPHILS % 1.7 % (0.0-5.0); HEMATOCRIT. 41.5 % (42.0-52.0); HEMOGLOBIN. 14.2 g/dL (14.0-18.0); MEAN CORPUSCULAR HEMOGLOBIN 28.3 pg (28.0-32.0); MEAN CORPUSCULAR VOLUME 82.9 fL (80.0-94.0); MEAN PLATELET VOLUME 8.9 fl (7.4-10.4); MONOCYTES % 8.3 % (2.0-8.0); NEUTROPHILS % 56.1 % (40.0-76.0); PLATELET 207 x1000/uL (130-400); RED CELL DISTRIBUTION WIDTH 16.7 % (11.6-14.6)
[2021-11-16 10:20] LABS: CHLORIDE 103 mEq/L (98-107)
[2021-11-16 10:24] LABS: ETHANOL BLOOD < 10 mg/dL
[2021-11-16] MEDS ORDERED: ACETAMINOPHEN 325MG TABLET PO ONE (11:15)
[2021-11-16] MEDS ORDERED: METOCLOPRAMIDE HCL 10MG TABLET PO ONE (11:30)
[2021-11-16] MEDS ORDERED: DIVA500T3 PO (11:39)
[2021-11-16 12:57] VITALS: BP 127/80
== END 2021-11-16 13:00 | disposition home or self-care (01) ==
LOC: ER 09:06 → CANBEDREQ 20:45
DX: G40.909 Epilepsy, unspecified, not intractable, without status epilepticus (principal); Z87.820 Personal history of traumatic brain injury; Z79.82 Long term (current) use of aspirin
CPT/HCPCS: 36415; 70450; 70496; 70498; 71045; 80053; 80165; 80320; 82962; 84484; 85025; 93005; 99291; Q9967; Z7610; J8597; G0480

== ENCOUNTER 2022-01-01 10:18 | Emergency (ER) | payer MEDICAID ==
[~2022-01-01] VITALS: Ht 165.1 cm; Wt 75.0 kg
[2022-01-01 10:21] VITALS: BP 141/78
[2022-01-01] MEDS ORDERED: DIVA500T3 PO (10:23)
== END 2022-01-01 10:49 | disposition home or self-care (01) ==
LOC: ER 10:18
DX: Z76.0 Encounter for issue of repeat prescription (principal); G40.909 Epilepsy, unspecified, not intractable, without status epilepticus; Z79.899 Other long term (current) drug therapy
CPT/HCPCS: 99283

== ENCOUNTER 2022-01-25 11:29 | Emergency (ER) | payer MEDICAID ==
[~2022-01-25] VITALS: Ht 180.3 cm; Wt 77.0 kg
[2022-01-25 11:43] VITALS: BP 109/79
[2022-01-25] MEDS ORDERED: KEPP500 MT (11:54)
== END 2022-01-25 12:26 | disposition home or self-care (01) ==
LOC: ER 11:29
DX: Z76.0 Encounter for issue of repeat prescription (principal); G40.909 Epilepsy, unspecified, not intractable, without status epilepticus
CPT/HCPCS: 99283

== ENCOUNTER 2022-02-28 09:35 | Inpatient (IN) | payer MEDICAID ==
[~2022-02-28] VITALS: Ht 152.4 cm; Wt 77.1 kg
[~2022-02-28 09:35] MED LIST changes: +KEPP500 MT
[2022-02-28] MEDS ORDERED: VALPROIC ACID 250MG CAPSULE PO ONE (10:15)
[2022-02-28] MEDS ORDERED: MIDAZOLAM HCL 2 MG/2 ML VIAL IV ONE (12:00)
[2022-02-28] MEDS ORDERED: LEVETIRACETAM 1000MG PREMIX 100 ML IV ONE (12:00)
[2022-02-28] MEDS ORDERED: SODIUM CHLORIDE 0.9% 1,000 ML IV ONE (12:00)
[2022-02-28] MEDS ORDERED: LORAZEPAM 2MG/ML CPJ ONE (12:01)
[2022-02-28 13:20] LABS: BASOPHILS % 1.5 % (0.0-2.0); EOSINOPHILS % 2.1 % (0.0-5.0); HEMATOCRIT. 37.1 % (42.0-52.0); HEMOGLOBIN. 12.4 g/dL (14.0-18.0); LYMPHOCYTES % 48.3 % (20.0-50.0); MEAN CORPUSCULAR HEMOGLOBIN 29.2 pg (28.0-32.0); MEAN CORPUSCULAR VOLUME 87.3 fL (80.0-94.0); MEAN PLATELET VOLUME 8.7 fl (7.4-10.4); MONOCYTES % 10.9 % (2.0-8.0); NEUTROPHILS % 37.2 % (40.0-76.0); PLATELET 265 x1000/uL (130-400); RED BLOOD CELL COUNT 4.25 mill/uL (4.7-6.1); RED CELL DISTRIBUTION WIDTH 12.5 % (11.6-14.6)
[2022-02-28 13:37] LABS: CHLORIDE 110 mEq/L (98-107)
[2022-02-28 13:44] LABS: ETHANOL BLOOD < 10 mg/dL
[2022-02-28 13:54] LABS: CREATINE KINASE 260 IU/L (39-308)
[2022-02-28] MEDS ORDERED: LACTULOSE 20G/30ML UDC PO SCH (15:30)
[2022-02-28 19:33] LABS: CLARITY URINE CLEAR (CLEAR); COLOR URINE YELLOW (YELLOW); KETONES URINE TRACE (NEGATIVE); LEUKOCYTE ESTERASE URINE NEGATIVE (NEGATIVE); NITRITE URINE NEGATIVE (NEGATIVE); OCCULT BLOOD URINE NEGATIVE (NEGATIVE); PH URINE 5.5 (4.5-8.0); PROTEIN URINE NEGATIVE (NEGATIVE); SPECIFIC GRAVITY URINE 1.018 (1.005-1.030); UROBILINOGEN URINE 0.2 E.U./dL (0.2-1.0)
[2022-02-28 19:46] LABS: *AMPHETAMINES SCREEN URINE NEGATIVE (NEGATIVE); *BARBITURATES SCREEN URINE NEGATIVE (NEGATIVE); *BENZODIAZEPINES SCREEN URINE PRESUMTIVE POSITIVE (NEGATIVE); *COCAINE SCREEN URINE NEGATIVE (NEGATIVE); CANNABINOID URINE SCREEN PRESUMTIVE POSITIVE (NEGATIVE); METHADONE URINE SCREEN NEGATIVE (NEGATIVE); OPIATES URINE SCREEN NEGATIVE (NEGATIVE); PHENCYCLIDINE URINE SCREEN NEGATIVE (NEGATIVE)
[2022-02-28 22:30] VITALS: BP 116/76
[2022-03-01 04:00] VITALS: BP 115/77
[2022-03-01 07:59] LABS: BASOPHILS % 0.8 % (0.0-2.0); EOSINOPHILS % 3.5 % (0.0-5.0); HEMATOCRIT. 35.8 % (42.0-52.0); HEMOGLOBIN. 12.2 g/dL (14.0-18.0); LYMPHOCYTES % 48.7 % (20.0-50.0); MEAN CORPUSCULAR HEMOGLOBIN 29.6 pg (28.0-32.0); MEAN CORPUSCULAR VOLUME 87.3 fL (80.0-94.0); MEAN PLATELET VOLUME 9.5 fl (7.4-10.4); MONOCYTES % 4.5 % (2.0-8.0); NEUTROPHILS % 42.5 % (40.0-76.0); PLATELET 213 x1000/uL (130-400); RED CELL DISTRIBUTION WIDTH 12.9 % (11.6-14.6)
[2022-03-01 08:00] VITALS: BP 113/67
[2022-03-01 08:02] LABS: CHLORIDE 109 mEq/L (98-107)
[2022-03-01] MEDS ORDERED: DIVALPROEX SODIUM 500MG ER TABLET PO SCH (09:00)
[2022-03-01 12:00] VITALS: BP 105/68
[2022-03-01] MEDS ORDERED: LACT10SO30 MT (15:06)
[2022-03-01] MEDS ORDERED: DIVA500T3 PO (15:06)
[2022-03-01 16:00] VITALS: BP 109/70
[2022-03-01 16:44] VITALS: BP 105/68
== END 2022-03-01 17:30 | disposition home or self-care (01) | DRG 53 ==
LOC: ER 09:44 → EDBEDREQ 12:14 → EDBEDREQSVC 15:31 → EDBEDREQTM 15:31 → EDBEDREQ 15:31 → 6EST 22:35
PROVIDERS: ADMIT Internal Medicine; ATTEND Internal Medicine
DX: R56.9 Unspecified convulsions (principal); E72.4 Disorders of ornithine metabolism; E87.2 Acidosis; F12.10 Cannabis abuse, uncomplicated; Z79.899 Other long term (current) drug therapy; Z87.820 Personal history of traumatic brain injury; Z91.14 Patient's other noncompliance with medication regimen
CPT/HCPCS: 36415; 71045; 80048; 80053; 80305; 80320; 81003; 82140; 82550; 84484; 85025; 99285; J1953; J2060; J2250; J7030; G0480

== ENCOUNTER 2022-07-07 12:21 | Emergency (ER) | payer MEDICAID ==
[~2022-07-07] VITALS: Ht 180.3 cm; Wt 75.0 kg
[~2022-07-07 12:21] MED LIST changes: +LACT10SO30 MT
[2022-07-07 12:23] VITALS: BP 124/77
[2022-07-07] MEDS ORDERED: DEPER5 MT (14:17)
== END 2022-07-07 15:24 | disposition home or self-care (01) ==
LOC: ER 12:21
DX: G40.909 Epilepsy, unspecified, not intractable, without status epilepticus (principal); Z76.0 Encounter for issue of repeat prescription; Z79.899 Other long term (current) drug therapy
CPT/HCPCS: 99281

== ENCOUNTER 2022-09-16 12:22 | Emergency (ER) | payer MEDICAID ==
[~2022-09-16] VITALS: Ht 177.8 cm; Wt 65.0 kg
[~2022-09-16 12:22] MED LIST changes: +DEPER5 MT
[2022-09-16 12:31] VITALS: BP 145/77
[2022-09-16] MEDS ORDERED: DIVA500T3 PO (12:46)
== END 2022-09-16 12:59 | disposition home or self-care (01) ==
LOC: ER 12:34
DX: Z76.0 Encounter for issue of repeat prescription (principal); G40.909 Epilepsy, unspecified, not intractable, without status epilepticus
CPT/HCPCS: 99281

== ENCOUNTER 2023-04-08 19:54 | Emergency (ER) | payer MEDICAID ==
[~2023-04-08] VITALS: Ht 180.3 cm; Wt 77.0 kg
[~2023-04-08 19:54] MED LIST changes: -LACT10SO30 MT; +LACT10SO81 MT
[2023-04-08 20:06] VITALS: BP 120/87; PULSE 102; RESP 18; TEMP 97.6; O2SAT 100
[2023-04-09] MEDS ORDERED: DIVA500T3 MT (06:18)
== END 2023-04-08 22:51 | disposition left against medical advice (07) ==
LOC: ER 19:54
DX: R56.9 Unspecified convulsions (principal); Z53.21 Procedure and treatment not carried out due to patient leaving prior to being seen by health care provider
CPT/HCPCS: 99281

== ENCOUNTER 2023-04-09 05:57 | Emergency (ER) | payer MEDICAID ==
[~2023-04-09] VITALS: Ht 175.3 cm; Wt 77.0 kg
[2023-04-09 06:03] VITALS: BP 140/97; RESP 18; TEMP 97.9; O2SAT 100
[2023-04-09 06:07] VITALS: PULSE 92
[2023-04-09] MEDS ORDERED: DIVA500T3 MT (06:18)
== END 2023-04-09 06:30 | disposition home or self-care (01) ==
LOC: ER 05:57
DX: Z76.0 Encounter for issue of repeat prescription (principal); Z79.899 Other long term (current) drug therapy
CPT/HCPCS: 99283

== ENCOUNTER 2023-05-05 18:48 | Emergency (ER) | payer MEDICAID ==
[~2023-05-05] VITALS: Ht 172.7 cm; Wt 75.0 kg
[~2023-05-05 18:48] MED LIST changes: +DIVA500T3 MT
[2023-05-05 18:53] VITALS: BP 115/73; PULSE 86; RESP 18; TEMP 98.4; O2SAT 100
[2023-05-05] MEDS ORDERED: LORAZEPAM 2MG/ML CPJ IM STA (19:05)
[2023-05-05] MEDS ORDERED: HALOPERIDOL LACTATE 5MG/ML VIAL IM ONE (19:15)
[2023-05-05 19:27] LABS: BASOPHILS % 0.8 % (0.0-2.0); EOSINOPHILS % 2.1 % (0.0-5.0); HEMATOCRIT. 33.5 % (42.0-52.0); HEMOGLOBIN. 11.5 g/dL (14.0-18.0); LYMPHOCYTES % 43.2 % (20.0-50.0); MEAN CORPUSCULAR HEMOGLOBIN 28.2 pg (28.0-32.0); MEAN CORPUSCULAR HGB CONC 34.4 g/dL (31.0-37.0); MEAN CORPUSCULAR VOLUME 82.2 fL (80.0-94.0); MEAN PLATELET VOLUME 8.1 fl (7.4-10.4); MONOCYTES % 4.3 % (2.0-8.0); NEUTROPHILS % 49.6 % (40.0-76.0); PLATELET 252 x1000/uL (130-400); RED BLOOD CELL COUNT 4.08 mill/uL (4.7-6.1); RED CELL DISTRIBUTION WIDTH 14.2 % (11.6-14.6); WHITE BLOOD COUNT 6.1 x1000/uL (4.5-11.0)
[2023-05-05 19:33] LABS: CHLORIDE 109 mEq/L (98-107); INDEX HEMOLYSI 1 (1-3); INDEX ICTERIC 1 (1-4); INDEX LIPEMIC 1 (1-3); POTASSIUM 4.1 mEq/L (3.5-5.1); SODIUM 140 mEq/L (136-145)
[2023-05-05 19:43] LABS: ALANINE AMINOTRANSFERASE 22 IU/L (13-61); ALBUMIN 3.5 g/dL (3.4-5.0); ASPARTATE AMINOTRANSFERASE 15 IU/L (15-37); BILIRUBIN TOTAL 0.4 mg/dL (0.1-1.0); CALCIUM 8.5 mg/dL (8.5-10.1); CARBON DIOXIDE 25 mEq/L (21-32); CREATININE 1.1 mg/dL (0.6-1.3); ETHANOL BLOOD 235 mg/dL (<10); GLUCOSE 105 mg/dL (70-105); PROTEIN TOTAL 6.5 g/dL (6.0-8.3); UREA NITROGEN BLOOD 11 mg/dL (7-21)
== END 2023-05-05 19:24 | disposition left against medical advice (07) ==
LOC: ER 18:48
DX: F10.129 Alcohol abuse with intoxication, unspecified (principal); F19.90 Other psychoactive substance use, unspecified, uncomplicated; Y90.7 Blood alcohol level of 200-239 mg/100 ml
CPT/HCPCS: 36415; 80053; 80320; 85025; 99283; G0480

== ENCOUNTER 2023-05-28 14:27 | Emergency (ER) | payer MEDICAID ==
[~2023-05-28] VITALS: Ht 177.8 cm; Wt 75.7 kg
[2023-05-28] MEDS ORDERED: DIVA500T3 MT (14:49)
[2023-05-28 15:02] VITALS: BP 136/73; PULSE 103; RESP 16; TEMP 98.5; O2SAT 100
== END 2023-05-28 15:58 | disposition home or self-care (01) ==
LOC: ER 14:27
DX: Z76.0 Encounter for issue of repeat prescription (principal); G40.909 Epilepsy, unspecified, not intractable, without status epilepticus; Z79.899 Other long term (current) drug therapy
CPT/HCPCS: 99281; 99283

== ENCOUNTER 2023-07-03 21:27 | Emergency (ER) | payer MEDICAID ==
[~2023-07-03] VITALS: Ht 177.8 cm; Wt 72.2 kg
[2023-07-03 21:57] VITALS: BP 136/100; PULSE 94; RESP 16; TEMP 98.6; O2SAT 98
[2023-07-03] MEDS ORDERED: DIVA500T3 MT (22:11)
[2023-07-03] MEDS ORDERED: DIVALPROEX SODIUM 500MG ER TABLET PO ONE (22:15)
== END 2023-07-03 22:47 | disposition home or self-care (01) ==
LOC: ER 21:27
DX: G40.909 Epilepsy, unspecified, not intractable, without status epilepticus (principal); F19.90 Other psychoactive substance use, unspecified, uncomplicated; Z76.0 Encounter for issue of repeat prescription
CPT/HCPCS: 99283

== ENCOUNTER 2023-07-14 13:34 | Emergency (ER) | payer MEDICAID ==
[~2023-07-14] VITALS: Ht 177.8 cm; Wt 75.0 kg
[2023-07-14 13:48] VITALS: BP 123/84; PULSE 88; TEMP 98.9; O2SAT 100
== END 2023-07-14 16:35 | disposition left against medical advice (07) ==
LOC: ER 14:26
DX: Z53.21 Procedure and treatment not carried out due to patient leaving prior to being seen by health care provider (principal)
CPT/HCPCS: 99281

== ENCOUNTER 2023-07-19 10:45 | Emergency (ER) | payer MEDICAID ==
[~2023-07-19] VITALS: Ht 177.8 cm; Wt 72.0 kg
[2023-07-19 10:48] VITALS: O2SAT 100
[2023-07-19] MEDS ORDERED: AMOX-405 MT (11:28)
[2023-07-19] MEDS ORDERED: TETANUS, DIPHTHERIA, PERTUSSIS VAC/PF 0.5ML (>10YR OLD) IM ONE (11:30)
[2023-07-19] MEDS ORDERED: BACITRACIN ZINC OINT UDPKT TOP ONE ×2 (11:30)
[2023-07-19] MEDS ORDERED: IBUPROFEN 600MG TABLET PO ONE (11:30)
[2023-07-19] MEDS ORDERED: IBUP-2029 MT (11:35)
[2023-07-19 12:11] VITALS: BP 131/89
[2023-07-19 12:14] VITALS: PULSE 86; RESP 14; TEMP 98.5
== END 2023-07-19 12:17 | disposition home or self-care (01) ==
LOC: ER 10:45
DX: S61.451A Open bite of right hand, initial encounter (principal); Z79.899 Other long term (current) drug therapy; Z86.59 Personal history of other mental and behavioral disorders; W54.0XXA Bitten by dog, initial encounter; Y93.89 Activity, other specified; Y92.89 Other specified places as the place of occurrence of the external cause; Y99.8 Other external cause status
CPT/HCPCS: 73120; 90715; 90471; 99283; Z7610

== ENCOUNTER 2023-08-15 19:12 | Emergency (ER) | payer MEDICAID ==
[~2023-08-15] VITALS: Ht 177.8 cm; Wt 77.1 kg
[~2023-08-15 19:12] MED LIST changes: +AMOX-405 MT; +IBUP-2029 MT
[2023-08-15 19:49] VITALS: BP 159/92; PULSE 100; RESP 16; TEMP 98.7; O2SAT 100
[2023-08-15] MEDS ORDERED: DIVA500T3 MT (20:34)
== END 2023-08-15 21:32 | disposition home or self-care (01) ==
LOC: ER 19:12
DX: G40.909 Epilepsy, unspecified, not intractable, without status epilepticus (principal); Z76.0 Encounter for issue of repeat prescription; Z79.899 Other long term (current) drug therapy
CPT/HCPCS: 99281

== ENCOUNTER 2023-11-18 20:51 | Emergency (ER) | payer MEDICAID ==
[~2023-11-18] VITALS: Ht 180.3 cm; Wt 68.7 kg
[2023-11-18 21:12] VITALS: O2SAT 100
[2023-11-18 23:07] VITALS: BP 150/90; PULSE 79; RESP 16; TEMP 97.9
== END 2023-11-18 23:08 | disposition home or self-care (01) ==
LOC: ER 20:51
DX: G40.909 Epilepsy, unspecified, not intractable, without status epilepticus (principal); Z76.0 Encounter for issue of repeat prescription; Z79.899 Other long term (current) drug therapy
CPT/HCPCS: 99281; 99283

== ENCOUNTER 2023-12-03 01:34 | Emergency (ER) | payer MEDICAID ==
[~2023-12-03] VITALS: Ht 177.8 cm; Wt 74.5 kg
[2023-12-03 02:08] VITALS: BP 134/86; PULSE 109; RESP 18; TEMP 98; O2SAT 99
== END 2023-12-03 03:48 | disposition left against medical advice (07) ==
LOC: ER 01:50
DX: Z48.02 Encounter for removal of sutures (principal); Z53.21 Procedure and treatment not carried out due to patient leaving prior to being seen by health care provider
CPT/HCPCS: 99281

== ENCOUNTER 2024-01-01 12:45 | Emergency (ER) | payer MEDICAID ==
[2024-01-01 13:22] VITALS: PULSE 89
== END 2024-01-01 16:59 | disposition left against medical advice (07) ==
LOC: ER 12:45
DX: R56.9 Unspecified convulsions (principal); Z53.21 Procedure and treatment not carried out due to patient leaving prior to being seen by health care provider

== ENCOUNTER 2024-03-16 20:32 | Emergency (ER) | payer MEDICAID ==
[~2024-03-16] VITALS: Ht 177.8 cm; Wt 75.0 kg
[2024-03-16 20:56] VITALS: BP_DIAS 88; O2SAT 100
[2024-03-16] MEDS ORDERED: KEPP500 MT (21:39)
[2024-03-16] MEDS: LEVETIRACETAM 500MG TABLET PO ONE (22:05)
[2024-03-16 22:09] VITALS: BP_SYST 136; PULSE 100; RESP 18; TEMP 98.2
== END 2024-03-16 22:11 | disposition home or self-care (01) ==
LOC: ER 20:32
DX: G40.909 Epilepsy, unspecified, not intractable, without status epilepticus (principal); Z76.0 Encounter for issue of repeat prescription; Z79.899 Other long term (current) drug therapy
CPT/HCPCS: 99283